=== PATIENT | female | born 1960 | race Caucasian/White ===

== ENCOUNTER 2025-06-13 12:36 | Inpatient (IN) | payer MEDICARE ==
[2025-06-13 13:25] LABS: BASOPHILS ABSOLUTE AUTO 0.03 K/uL (0.02-0.10); BASOPHILS PERCENT AUTO 0.2 % (0.0-0.5); EOSINOPHILS ABSOLUTE AUTO 0.07 K/uL (0.04-0.40); EOSINOPHILS PERCENT AUTO 0.4 % (1.0-5.0); LYMPHOCYTES ABSOLUTE AUTO 1.65 K/uL (1.50-4.00); LYMPHOCYTES PERCENT AUTO 9.1 % (20.0-40.0); MEAN PLATELET VOLUME 9.4 fL (6.0-10.0); MONOCYTES ABSOLUTE AUTO 1.09 K/uL (0.20-0.80); MONOCYTES PERCENT AUTO 6.0 % (3.0-10.0); NEUTROPHILS ABSOLUTE AUTO 15.31 K/uL (2.00-7.50); NEUTROPHILS PERCENT AUTO 84.3 % (45.0-70.0); PLATELET COUNT,PLT 531 K/uL (150-500); RED BLOOD CELL COUNT 4.53 M/uL (3.80-5.80); RED CELL DISTRIBUTION WIDTH 13.8 % (11.0-16.0); WHITE BLOOD CELL COUNT,WBC 18.2 K/uL (4.0-11.0)
[2025-06-13 13:44] LABS: A/G RATIO 0.3 (0.8-2.0); ALANINE AMINOTRANSFERASE,ALT 16 U/L (12-78); ASPARTATE AMNIOTRANSFERASE,AST 13 U/L (15-37); BILIRUBIN TOTAL 0.5 mg/dL (0.0-1.0); BLOOD UREA NITROGEN,BUN 20 mg/dL (8-26); CARBON DIOXIDE,CO2 24.0 mmol/L (21.0-32.0); CHLORIDE,CL 96 mmol/L (98-107); CREATININE 1.12 mg/dL (0.55-1.02); ESTIMATED GFR 54 mL/min (>60); GLUCOSE RANDOM 278 mg/dL (74-100); POTASSIUM,K 3.9 mmol/L (3.5-5.1); PROTEIN TOTAL,TP 7.8 g/dL (6.4-8.2); SODIUM,NA 136 mmol/L (136-145)
[2025-06-13 13:48] LABS: PRO B-TYPE NATRIUR PEPT,BNPPRO 305 pg/mL (0-125)
[2025-06-13] MEDS ORDERED: Acetaminophen/HYDROcodone 325-5 MG Tab PO PRN (14:32)
[2025-06-13 14:34] LABS: KETONES,BLOOD SMALL (NEGATIVE)
[2025-06-13] MEDS ORDERED: Sodium Chloride 0.9% 10 ML Syringe FLUSH PRN (14:51)
[2025-06-13 14:57] LABS: APPEARANCE,URINE CLEAR (CLEAR); GLUCOSE,URINE 100 mg/dL (NEGATIVE); OCCULT BLOOD,URINE SMALL (NEGATIVE)
[2025-06-13 15:12] LABS: SQUAMOUS EPITHELIAL CELLS,UR MODERATE /HPF
[2025-06-13 15:13] LABS: COARSE GRANULAR CASTS,URINE MODERATE /HPF; FINE GRANULAR CASTS,URINE FEW /HPF
[2025-06-13] MEDS: metFORMIN 500 MG Tab.ER PO SCH (17:05)
[2025-06-13] MEDS ORDERED: 50% Dextrose in Water 50 ML Syringe IVPUSH PRN (18:13)
[2025-06-13] MEDS ORDERED: Non-Formulary Medication 1 Each (Tirzepatide [Mounjaro] 5 MG/0.5 ML Pen.Injctr) SUBCUT SCH (18:15)
[2025-06-13] MEDS: metFORMIN 500 MG Tab.ER PO ONE (18:32)
[2025-06-13] MEDS: Insulin Lispro 100 Unit/ML 3 ML KwikPen SUBCUT SCH (18:32)
[2025-06-13] MEDS: Lactated Ringers 1,000 ML IV SCH (18:33)
[2025-06-13] MEDS ORDERED: Insulin Lispro 100 Unit/ML 3 ML KwikPen SUBCUT SCH (20:00)
[2025-06-13] MEDS ORDERED: Formoterol/Mometasone 200-5 MCG 8.8 GM Inhaler INH SCH (20:00)
[2025-06-13] MEDS ORDERED: Non-Formulary Medication 1 Each (Insulin Lispro [Humalog] 100 UNIT/ML Vial) SQ SCH (20:00)
[2025-06-13] MEDS ORDERED: Insulin Glargine,Human Rec. Analog 100 Units/ML 3 ML Pen SUBCUT SCH (20:00)
[2025-06-14] MEDS ORDERED: LEVOTHYROXINE SODIUM 125 MCG PO SCH (07:00)
[2025-06-14] MEDS ORDERED: ESOMEPRAZOLE 20 MG PO SCH (08:00)
[2025-06-14] MEDS ORDERED: metFORMIN 500 MG Tab.ER PO SCH (08:00)
[2025-06-14] MEDS ORDERED: Non-Formulary Medication 1 Each (Levothyroxine Sodium [Synthroid] 125 MCG Tablet) PO SCH (08:00)
[2025-06-14] MEDS ORDERED: Non-Formulary Medication 1 Each (Dapagliflozin Propanediol [Farxiga] 5 MG Tablet) PO SCH ×2 (08:00)
== END 2025-06-13 19:34 | DRG 603 ==
LOC: LB.ED 12:36 → LB.MS 14:29 → UNDOADMIN 14:29
PROVIDERS: ADMIT Physician Assistant; ATTEND Physician Assistant
DX: L03.115 Cellulitis of right lower limb (principal); R65.10 Systemic inflammatory response syndrome (SIRS) of non-infectious origin without acute organ dysfunction; E11.9 Type 2 diabetes mellitus without complications; H54.7 Unspecified visual loss; I10 Essential (primary) hypertension; J45.909 Unspecified asthma, uncomplicated; E03.9 Hypothyroidism, unspecified; E86.0 Dehydration; Z79.899 Other long term (current) drug therapy; Z79.4 Long term (current) use of insulin; Z79.84 Long term (current) use of oral hypoglycemic drugs
CPT/HCPCS: 36415; 73700; 80053; 82009; 83605; 83735; 83880; 84145; 85025; 86140; 87040 ×2; J2543; J7030; 81001; 82947; 96361; 96365; 99223; 99284-25; A0425; A0428; A9270-GY; J7120